=== PATIENT | male | born 2000 | race Caucasian/White ===

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

== ENCOUNTER 2024-12-15 17:27 | Emergency (ER) | payer SELFPAY ==
--- NOTE | ~2024-12-15 | US_ITS ---
CLINICAL HISTORY: RLQ pain US abdomen limited Comparison: None Findings: Appendix is not definitely visualized. Trace free fluid within the right lower quadrant. No evidence of rebound tenderness. IMPRESSION: Appendix is not definitely visualized. Trace free fluid within the right lower quadrant. This document has been electronically signed by: Yeyo Sheikh MD on 12/15/2024 19:18:03
--- NOTE | ~2024-12-15 | CT_ITS ---
CLINICAL HISTORY: RLQ pain CT abdomen and pelvis with contrast Comparison: CT - CT ABDOMEN PELVIS W IV CON - 12/15/24 22:33 EST Findings: No consolidation or effusion. Unremarkable gallbladder and solid organs. No urolithiasis. No bowel obstruction, pneumoperitoneum, or pneumatosis. Pelvic contents unremarkable. Normal appendix. No acute fracture. IMPRESSION: No acute findings. This document has been electronically signed by: Timi Stearns MD, PHD on 12/15/2024 23:30:34
[2024-12-15 17:49] VITALS: BP 121/76; PULSE 81; RESP 19; TEMP 36.6; O2SAT 98; BMI 23.4
--- NOTE | 2024-12-15 17:55 | ED.ABDPAIN ---
HPI - Abdominal Pain General Chief Complaint: Abdominal Pain Stated Complaint: urgent care sent for MRI ? apendix Time Seen by Provider: 12/15/24 22:25 Source: patient Mode of arrival: ambulatory Limitations: no limitations History of Present Illness ED Provider: DR. Champagne HPI narrative: 24-year-old male came in for evaluation of abdominal pain on and off for the past 2 weeks but become more constant for the past day patient was seen at urgent care earlier today and was told to come to the ED to rule out acute appendicitis pain is localized to the right lower quadrant area associated with nausea. No dysuria, no frequency urination, no hematuria, no fever, no chills. Eating and drinking with good appetite. 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 No history of intra-abdominal surgery. Related Data Previous Rx's ?Medication ?Instructions ?Recorded cyclobenzaprine 10 mg tablet 10 mg PO Q8H #20 tabs 08/18/21 ibuprofen 600 mg tablet 600 mg PO Q6H PRN pain #20 tabs 08/18/21 oxycodone 5 mg tablet 5 mg PO Q6H PRN Pain (Scale Score 08/18/21 7-10) #20 tabs Allergies Allergy/AdvReac Type Severity Reaction Status Date / Time sulfamethoxazole Allergy Unknown Verified 12/15/24 17:51 [From Bactrim] trimethoprim [From Bactrim] Allergy Unknown Verified 12/15/24 17:51 Review of Systems Review of Systems All other systems are reviewed and are negative Constitutional: Reports as per HPI and Reports no additional constitutional complaints Eyes: Reports as per HPI and Reports no additional eye complaints Reports system reviewed and no additional complaints, except as documented Cardiovascular: Reports as per HPI and Reports no additional cardiovascular complaints Respiratory: Reports as per HPI and Reports no additional respiratory complaints Gastrointestinal: Reports as per HPI and Reports no additional gastrointestinal complaints Genitourinary: Reports no additional female genitourinary complaints Musculoskeletal: Reports no additional musculoskeletal complaints Skin/Breast: Reports system reviewed and no additional complaints, except as docu Psychiatric: Reports no additional psychiatric complaints Endocrine: Reports no additional endocrine complaints Hematologic/Lymphatic: Reports no additional hematologic/lymphatic complaints Allergic/Immunologic: Reports no additional allergic/immunologic complaints Reports system reviewed and no additional complaints, except as documented and Reports Abnormal speech present [facility] Past Medical History Medical History No known health problems Social History Social History Advance Directives: No Advance Directives Information Provided: No Do you have a plan to hurt others: No Plan Physical Exam ED Vital Signs: Vital Signs - 24 hr 12/15/24 17:49 Temperature 98 F Pulse Rate 81 Respiratory Rate 19 Blood Pressure 121/76 Pulse Oximetry 98 Oxygen Delivery Method Room Air BMI result Body Mass Index 23.4 Vital signs have been reviewed and appear to be correct. Blood pressure elevated. Heart rate normal. Respiratory rate normal. Temperature normal. Oxygen saturation normal. Appearance: Alert. Oriented X3. No acute distress. Head: Normal external exam. Normocephalic. Atraumatic. No Terry signs noted. No raccoon eyes noted Eyes: PERRLA. EOMI. Conjunctiva and sclera normal. Eyelids normal. ENT: TM's Normal. Pharynx normal. Uvula midline. Moist mucous membranes. No trismus noted. No drooling noted. No muffled voice noted. Neck: Normal inspection. Neck supple. FROM. No adenopathy. Thyroid Normal. No meningeal signs. No neck mass noted. CVS: Normal heart rate and rhythm. Heart sound normal. No murmurs noted. Pulses normal throughout. Respiratory: No respiratory distress. Painless inspiration. Breath sounds normal. No wheezes/rales/rhonchi noted. Chest nontender. No accessory muscle usage noted or decreased air movement noted. Abdomen: Soft and nontender. Bowel sounds normal in all 4 quadrants. No distention noted. No organomegaly noted. No visible injury noted. Back: No CVA tenderness. Full range of motion noted. Skin: Skin warm and dry. Normal skin color. Normal skin turgor. No rashes/lesions/lacerations noted. Extremities: No lower extremity edema. Extremities exhibit normal range of motion. Extremities nontender. Neuro: Oriented X 3. Cranial nerve exam: II-XII are grossly intact No motor deficit. No sensory deficit. Reflexes normal. Course Course Course Narrative: This is an RME: Additional HPI, ROS, PE not included below will be deferred to primary provider. RME assessment and note performed by: Susan Rosales PA-C This is a 24-year-old male who presents emergency department with complaints of right lower quadrant pain, nausea, diarrhea and vomiting. Patient was seen at an urgent care and was told to come to the emergency room for rule out appendicitis. Patient with tenderness palpation along the right lower quadrant. No urinary symptoms. No testicular pain. Plan: Labs, UA, ultrasound of the appendix, further ER evaluation needed. Reevaluation(s) Reevaluation #1: Normal WBCs, CT abdomen pelvis reveals normal appendix with no other intra-abdominal pathology. Time: 00:30 Medical Decision Making Differential Diagnosis Differential Diagnoses: The differential diagnosis associated with the presentation includes (Acute appendicitis, hernia, diverticulitis, acute colitis, kidney stone, UTI, electrolyte derangement, severe anemia abdominal muscle pain.) Admission/Observation Consideration of admission/observation: Escalation of care including admission/observation considered Lab Data MDM Lab Attestation statement: I reviewed the patient's lab results. 12/15/24 18:16 12/15/24 18:16 Labs: Lab Results 12/15/24 12/15/24 Range/Units 18:16 23:59 WBC 5.9 (4.8-10.8) X10*3/uL RBC 4.80 (4.60-5.80) X10*6/uL Hgb 14.5 (14.0-18.0) g/dl Hct 42.5 (42.0-52.0) % MCV 88.5 (80.0-98.0) fL MCH 30.2 (27.0-33.0) pg MCHC 34.1 (31.0-36.0) g/dl RDW 11.5 (11.0-16.0) % Plt Count 179 (160-400) X10*3/uL MPV 10.5 (9.4-12.4) fL Immature Gran % (Auto) 0.7 H (0.0-0.4) % Neut % (Auto) 56.8 (45-73) % Lymph % (Auto) 36.1 (20-40) % [place] % (Auto) 5.6 (2-11) % Eos % (Auto) 0.5 (0-4) % Baso % (Auto) 0.3 (0-2) % Lymph # (Auto) 2.1 (1.2-4.9) X10*3/uL [place] # (Auto) 0.3 (0.1-1.2) X10*3/uL Eos # (Auto) 0.0 (0.0-0.4) X10*3/uL Baso # (Auto) 0.0 (0.0-0.2) X10*3/uL Abs Immat Gran (auto) 0.04 H (0.00-0.03) X10*3/uL Absolute Neuts (auto) 3.4 (2.0-8.3) x10*3/uL Absolute Nucleated RBC 0.000 (0.0-0.012) X10*3/uL Nucleated RBC % (auto) 0.0 (0.0-0.2) /100WBC Sodium 143 (135-145) mmol/L Potassium 3.7 (3.3-5.1) mmol/L Chloride 107 (96-108) mmol/L Carbon Dioxide 29 (22-29) mmol/L Anion Gap 11 L (12-20) BUN 12 (9-16) mg/dL Creatinine 0.81 (0.5-1.4) mg/dL Estim Creat Clear Calc 138.3 Estimated GFR > 60 Random Glucose 78 (60-115) mg/dL Calcium 9.2 (8.4-10.2) mg/dL Magnesium 1.9 (1.6-2.6) mg/dL Total Bilirubin 1.2 H (0.0-1.0) mg/dL Direct Bilirubin 0.3 (0.0-0.5) mg/dL AST 22 (5-37) U/L ALT 29 (0-40) U/L Alkaline Phosphatase 81 (39-117) U/L Total Protein 7.5 (6.5-8.0) g/dL Albumin 4.5 (3.5-5.0) g/dL Lipase 29 (8-78) U/L Urine Color Yellow Urine Appearance Clear Urine pH 7.0 (5.0-9.0) Ur Specific [place] 1.010 (1.005-1.025) Urine Protein Negative (Neg-Trace) mg/dL Urine Glucose (UA) Negative (Negative) mg/dL Urine Ketones Negative (Negative) mg/dL Urine Blood Negative (Negative) Urine Nitrite Negative (Negative) Ur Leukocyte Esterase Negative (Negative) Independent Interpretation I performed an independent interpretation of an: Ultrasound (Abdominal ultrasound: Appendix is not definitely visualized. Trace free fluid within the right lower quadrant.) and CT Scan (Abdomen and pelvis: No acute findings.) Radiology Impression Discussion of test interpretation with radiology: I have reviewed the radiologist's reading. Medications Administered Discontinued Medications Generic Name Dose Route Start Last Admin Trade Name Freq PRN Reason Stop Dose Admin Iohexol 85 ml 12/15/24 22:52 12/15/24 22:52 Iohexol 350 Mg/Ml 100 Ml Infus..Btl IV 12/15/24 22:53 85 ml ONCE ONE Administration Discharge Plan Discharge Clinical Impression: Abdominal pain Patient Disposition: Home, Self-Care Instructions: Abdominal Pain (ED) Prescriptions: No Action cyclobenzaprine 10 mg tablet 10 mg PO Q8H Qty: 20 0RF ibuprofen 600 mg tablet 600 mg PO Q6H PRN (Reason: pain) Qty: 20 0RF oxycodone 5 mg tablet 5 mg PO Q6H PRN (Reason: Pain (Scale Score 7-10)) Qty: 20 0RF Referrals: Candelaria Spence MD [Primary Care Provider] - Print Language: Danish
[2024-12-15 18:20] LABS: MANUAL DIFF FLAG NO
[2024-12-15 18:42] LABS: Alanine Aminotransferase 29 U/L (0-40); Albumin Level 4.5 g/dL (3.5-5.0); Alkaline Phosphatase 81 U/L (39-117); Anion Gap 11 (12-20); Aspartate Amino Transferase 22 U/L (5-37); Bilirubin Direct 0.3 mg/dL (0.0-0.5); Bilirubin Total 1.2 mg/dL (0.0-1.0); Blood Urea Nitrogen 12 mg/dL (9-16); Calcium 9.2 mg/dL (8.4-10.2); Carbon Dioxide 29 mmol/L (22-29); Chloride 107 mmol/L (96-108); Creatinine Clr Calc Pharmacy 138.3; Estimated Glomerular Filt Rate > 60; Glucose Random 78 mg/dL (60-115); Lipase 29 U/L (8-78); Magnesium 1.9 mg/dL (1.6-2.6); Potassium 3.7 mmol/L (3.3-5.1); Sodium 143 mmol/L (135-145); Total Protein 7.5 g/dL (6.5-8.0)
[2024-12-15 18:43] LABS: Basophils Percent Auto 0.3 % (0-2); Eosinophils Percent Auto 0.5 % (0-4); Hematocrit 42.5 % (42.0-52.0); Hemoglobin 14.5 g/dl (14.0-18.0); Imm Gran Abs Auto 0.04 X10*3/uL (0.00-0.03); Imm Gran Pct Auto 0.7 % (0.0-0.4); Lymphocytes Absolute Auto 2.1 X10*3/uL (1.2-4.9); Lymphocytes Percent Auto 36.1 % (20-40); Mean Corpuscular HGB Conc 34.1 g/dl (31.0-36.0); Mean Corpuscular Hemoglobin 30.2 pg (27.0-33.0); Mean Corpuscular Volume 88.5 fL (80.0-98.0); Mean Platelet Volume 10.5 fL (9.4-12.4); Monocytes Absolute Auto 0.3 X10*3/uL (0.1-1.2); Monocytes Percent Auto 5.6 % (2-11); Neutrophils Absolute Auto 3.4 x10*3/uL (2.0-8.3); Neutrophils Percent Auto 56.8 % (45-73); Platelet Count 179 X10*3/uL (160-400); Red Cell Distribution Width 11.5 % (11.0-16.0); White Blood Count 5.9 X10*3/uL (4.8-10.8)
--- OUTSIDE RECORDS SUMMARY | 2024-12-15 22:17 | XMS_ITS | Encounter Summary ---
Author Organization [facility] Address [address] [place] [address] Care Team Providers Care Lead Programmer Analyst Name Role Phone Candelaria Spence MD Primary Care Provider Unavail Lindsay Ybarra MD Primary Care Provider [phone] Encounter Details Date Type Department Care Team Description 08/02/2019 Personal Injury Attorney Report Medical Records [address] [place] [id number] Lynne Noland Social History Tobacco Use Types Packs/Day Years Used Date Smoking Tobacco: Never Smokeless Tobacco: Never Comments:parents smoke outsi de, child has tried cigarette with cousins Alcohol Use Standard Drinks/Week Comments No 0 (1 standard drink = 0.6 oz pur e alcohol) Alcohol Habits Answer Date Recorded How often do you have a drink containing alcohol ? Monthly or less 02/03/2020 How many drinks containing a lcohol do you have on a typical day when you are drinking? Not asked How often do you have six or more drinks on one occasion? Not asked Sex Assigned at Date Recorded Not on file documented as of this encounter Plan of Treatment Not on file documented as of this encounter Visit Diagnoses Not on filedocumented in this encounter Care Teams Lead Programmer Analyst Relationship Specialty Start Date End Date Candelaria Spence MD PCP - General Pediatrics 09/10/12 09/04/22 Lindsay Joy MD [address] [place] [address] PCP - General Internal Medicine 09/05/22 documented as of this encounter
--- OUTSIDE RECORDS SUMMARY | 2024-12-15 22:17 | XMS_ITS | Encounter Summary ---
Author Organization [facility] Address [address] [place] [address] Care Team Providers Care Mascara Molder Name Role Phone Candelaria Spence MD Primary Care Provider Unavail Lindsay Ybarra MD Primary Care Provider [phone] Encounter Details Date Type Department Care Team Description 04/19/2018 Medical Research Associate Report Medical Records [address] [place] [id number] Abstract, Provider Social History Tobacco Use Types Packs/Day Years [...] on filedocumented in this encounter Care Teams Mascara Molder Relationship Specialty Start Date End Date Candelaria Spence MD PCP - General Pediatrics 09/10/12 09/04/22 Lindsay Joy MD [address] [place] [id number] PCP - General Internal Medicine 09/05/22 documented as of this encounter
--- OUTSIDE RECORDS SUMMARY | 2024-12-15 22:17 | XMS_ITS | Encounter Summary ---
Author Organization [facility] Address [address] [place] [address] Care Team Providers Care Freezing Room Worker Name Role Phone Candelaria Spence MD Primary Care Provider Unavail Lindsay Ybarra MD Primary Care Provider [phone] Encounter Details Date Type Department Care Team Description 11/03/2015 Release of Information Medical Records [address] [place] [id number] Abstract, Provider Social History Tobacco Use Types [...] on filedocumented in this encounter Care Teams Freezing Room Worker Relationship Specialty Start Date End Date Candelaria Spence MD PCP - General Pediatrics 09/10/12 09/04/22 Lindsay Joy MD [address] [place] [id number] PCP - General Internal Medicine 09/05/22 documented as of this encounter
--- OUTSIDE RECORDS SUMMARY | 2024-12-15 22:17 | XMS_ITS | Encounter Summary ---
Author Organization [facility] Address [address] [place] [address] Care Team Providers Care Operations Research Group Manager Name Role Phone Kay Aleman MD Primary Care Provider Candelaria Jennings MD Primary Care Provider [facility] Lindsay Ybarra MD Primary Care Provider [phone] Encounter Details Date Type Department Care Team Description 05/15/2012 Photo Lab Specialist Report Medical Records [address] [place] [address] Luis Miguel White Social History Tobacco Use Types Packs/Day Years Used Date Smoking Tobacco: Never Smokeless Tobacco: Never Comments:parents smoke outsi de Alcohol Use Standard Drinks/Week Comments Not Asked 0 (1 standard drink = 0.6 oz [...] on filedocumented in this encounter Care Teams Operations Research Group Manager Relationship Specialty Start Date End Date Kay Aleman MD PCP - General Pediatrics 11/21/11 09/09/12 Candelaria Spence MD PCP - General Pediatrics 09/10/12 09/04/22 Lindsay Joy MD [address] [place] [address] PCP - General Internal Medicine 09/05/22 documented as of this encounter
--- OUTSIDE RECORDS SUMMARY | 2024-12-15 22:17 | XMS_ITS | Encounter Summary ---
Author Organization [facility] Address [address] [place] [address] Care Team Providers Care Social Service Agency Director Name Role Phone Kay Aleman MD Primary Care Provider Candelaria Jennings MD Primary Care Provider UnavailLindsay Rios MD Primary Care Provider [phone] Encounter Details Date Type Department Care Team Description 05/03/2012 Release of Information Medical Records [address] [place] [address] Abstract, Provider Social History Tobacco Use Types [...] on file documented as of this encounter Nursing Notes * 05/03/2012 12:00 PM EDT >> TIMO KOWALSKI SunMay 03, 2012 10:48 AM Authorization received from [facility] to allow for mutual exchange of both verbal & written information to the end of treatment. documented in this encounter Plan of Treatment Not on file documented as of this encounter Visit Diagnoses Not on filedocumented in this encounter Care Teams Social Service Agency Director Relationship Specialty Start Date End Date Kay Aleman MD PCP - General Pediatrics 11/21/11 09/09/12 Candelaria Spence MD PCP - General Pediatrics 09/10/12 09/04/22 Lindsay Joy MD [address] [place] [id number] PCP - General Internal Medicine 09/05/22 documented as of this encounter
--- OUTSIDE RECORDS SUMMARY | 2024-12-15 22:17 | XMS_ITS | Encounter Summary ---
Author Organization [facility] Address [address] [place] [address] Care Team Providers Care Sash Clamp Operator Name Role Phone Candelaria Spence MD Primary Care Provider Unavail Lindsay Ybarra MD Primary Care Provider [phone] Encounter Details Date Type Department Care Team Description 08/31/2016 Release of Information Medical Records [address] [place] [id number] Abstract, Provider Social History Tobacco Use Types [...] on filedocumented in this encounter Care Teams Sash Clamp Operator Relationship Specialty Start Date End Date Candelaria Spence MD PCP - General Pediatrics 09/10/12 09/04/22 Lindsay Joy MD [address] [place] [id number] PCP - General Internal Medicine 09/05/22 documented as of this encounter
--- OUTSIDE RECORDS SUMMARY | 2024-12-15 22:17 | XMS_ITS | Encounter Summary ---
Author Organization [facility] Address [address] [place] [address] Care Team Providers Care Bail Bondsman Name Role Phone Kay Aleman MD Primary Care Provider Candelaria Jennings MD Primary Care Provider [facility] Lindsay Ybarra MD Primary Care Provider [phone] Encounter Details Date Type Department Care Team Description 05/22/2012 Tractor Drill Operator Report Medical Records [address] [place] [address] Luis Miguel White Social History Tobacco Use [...] on filedocumented in this encounter Care Teams Bail Bondsman Relationship Specialty Start Date End Date Kay Aleman MD PCP - General Pediatrics 11/21/11 09/09/12 Candelaria Spence MD PCP - General Pediatrics 09/10/12 09/04/22 Lindsay Joy MD [address] [place] [address] PCP - General Internal Medicine 09/05/22 documented as of this encounter
--- OUTSIDE RECORDS SUMMARY | 2024-12-15 22:17 | XMS_ITS | Encounter Summary ---
Author Organization [facility] Address [address] [place] [address] Care Team Providers Care Office Rep Name Role Phone Candelaria Spence MD Primary Care Provider UnavailKay Woods MD Primary Care Provider Kacy Candelaria Taylor MD Primary Care Provider Unavailab Lindsay Ybarra MD Primary Care Provider [phone] Encounter Details Date Type Department Care Team Description 08/04/2011 MyChart Proxy Form Medical Records [address] [place] [id number] Abstract, Provider Social History Tobacco Use Types [...] on filedocumented in this encounter Care Teams Office Rep Relationship Specialty Start Date End Date Candelaria Spence MD PCP - General 06/09/09 11/20/11 Kay Aleman MD PCP - General Pediatrics 11/21/11 09/09/12 Candelaria Spence MD PCP - General Pediatrics 09/10/12 09/04/22 Lindsay Joy MD [address] [place] [id number] PCP - General Internal Medicine 09/05/22 documented as of this encounter
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
--- OUTSIDE RECORDS SUMMARY | 2024-12-15 22:17 | XMS_ITS | Encounter Summary ---
Author Organization [facility] Address [address] [place] [address] Care Team Providers Care Human Resource Advisor Name Role Phone Candelaria Spence MD Primary Care Provider Unavail Lindsay Ybarra MD Primary Care Provider Encounter Details Date Type Department Care Team Description 02/06/2020 SDOH FORMS Medical Records [address] [place] [id number] Abstract, Provider Social History Tobacco Use Types Packs/Day Years Used Date Smoking Tobacco: Never Smokeless Tobacco: Never Comments:parents smoke outsi de, child has tried cigarette with cousins Alcohol Use Standard Drinks/Week Comments Yes 0 [...] on filedocumented in this encounter Care Teams Human Resource Advisor Relationship Specialty Start Date End Date Candelaria Spence MD PCP - General Pediatrics 09/10/12 09/04/22 Lindsay Joy MD [address] [place] [id number] PCP - General Internal Medicine 09/05/22 documented as of this encounter
--- OUTSIDE RECORDS SUMMARY | 2024-12-15 22:17 | XMS_ITS | Encounter Summary ---
Author Organization [facility] Address [address] [place] [address] Care Team Providers Care Casting Cleaner Name Role Phone Candelaria Spence MD Primary Care Provider Unavail Lindsay Ybarra MD Primary Care Provider [phone] Encounter Details Date Type Department Care Team Description 02/02/2017 Tenter Report Medical Records [address] [place] [id number] Zak Valentino MD Social History Tobacco Use Types Packs/Day Years [...] on filedocumented in this encounter Care Teams Casting Cleaner Relationship Specialty Start Date End Date Candelaria Spence MD PCP - General Pediatrics 09/10/12 09/04/22 Lindsay Joy MD [address] [place], [place] [id number] PCP - General Internal Medicine 09/05/22 documented as of this encounter
--- OUTSIDE RECORDS SUMMARY | 2024-12-15 22:17 | XMS_ITS | Encounter Summary ---
Author Organization [facility] Address [address] [place] [address] Care Team Providers Care Propulsion Motor And Generator Repairer Name Role Phone Candelaria Spence MD Primary Care Provider Unavail Lindsay Ybarra MD Primary Care Provider [phone] Encounter Details Date Type Department Care Team Description 01/31/2017 Transfer Records Medical Records [address] [place] [id number] Abstract, Provider Social History Tobacco Use Types [...] on filedocumented in this encounter Care Teams Propulsion Motor And Generator Repairer Relationship Specialty Start Date End Date Candelaria Spence MD PCP - General Pediatrics 09/10/12 09/04/22 Lindsay Joy MD [address] [place] [id number] PCP - General Internal Medicine 09/05/22 documented as of this encounter
[2024-12-15] MEDS: iohexoL 350 MG/ML 100 ML INFUS..BTL 85 ML IV (22:52)
[2024-12-16 00:17] LABS: Appearance Urine Clear; Color Urine Yellow; Glucose Urine UA Negative (Negative); Leukocyte Esterase Urine Negative (Negative); Nitrite Urine Negative (Negative); Urine Blood Negative (Negative); Urine Ketones Negative (Negative); Urine Protein Negative (Neg-Trace)
[2024-12-16 00:34] VITALS: BP 121/76; PULSE 81; RESP 19; TEMP 36.6; O2SAT 98
== END 2024-12-16 00:35 | disposition home or self-care (01) ==
PROVIDERS: Physician Assistant Medical; Emergency Provider Emergency Medicine; PCP Pediatrics
DX: R10.2 Pelvic and perineal pain (principal); R10.31 Right lower quadrant pain; R11.2 Nausea with vomiting, unspecified; R19.7 Diarrhea, unspecified; Z79.899 Other long term (current) drug therapy
CPT/HCPCS: 36415; 74177; 76705; 80048; 80076; 81003; 83690; 83735; 85025; 99282; 99284; Q9967

== ENCOUNTER → 2024-12-15 17:57 | Outpatient (BNV) | payer OTHER, SELFPAY | PROVIDERS: PCP Pediatrics; Visit Provider Student in an Organized Health Care Education/Training Program | DX: R10.31 Right lower quadrant pain (principal) | CPT/HCPCS: 74177 ==